=== PATIENT | female | born 1960 | race Caucasian/White ===

== ENCOUNTER 2021-05-01 14:17 | Emergency (ER) | payer SELFPAY ==
[~2021-05-01] VITALS: Ht 170.2 cm; Wt 86.2 kg
[~2021-05-01 14:17] MED LIST: PENICILLIN V P500 MG PO
== END 2021-05-01 16:39 | disposition home or self-care (01) ==
LOC: FSED 16:25
DX: S60.222A Contusion of left hand, initial encounter (principal); E11.9 Type 2 diabetes mellitus without complications; E78.5 Hyperlipidemia, unspecified
CPT/HCPCS: 99283